=== PATIENT | female | born 1950 | race Two or more races ===

== ENCOUNTER 2020-09-09 12:30 | Inpatient (IN) | payer MEDICARE ==
[2020-09-09 14:22] LABS: VENOUS BASE EXCESS 3.8 mmol/L (-2-2); VENOUS PH 7.502 (7.310-7.410)
[2020-09-09 14:24] LABS: BASO % 0.6 % (0-2.0); EOS % 5.4 % (0-4.5); HEMATOCRIT 36.4 % (32.4-45.2); LYMPH % 29.3 % (8-40); MCH 31.9 pg (25.7-33.7); MCHC 32.9 g/dl (32.0-36.0); MEAN CELL VOLUME 97.1 fl (80-96); MEAN PLT VOLUME 11.8 fl (7.5-11.1); NEUT % 57.7 % (42.8-82.8); PLATELET COUNT 167 K/MM3 (134-434); RBC 3.75 M/mm3 (3.60-5.2); RDW 14.8 % (11.6-15.6); WHITE BLOOD COUNT 4.1 K/mm3 (4.0-10.0)
[2020-09-09 14:33] LABS: INR 1.25 (0.83-1.09); PROTHROMBIN TIME (PATIENT) 15.3 SEC (9.7-13.0)
[2020-09-09 14:36] LABS: ACTIVATED PTT 33.6 SECONDS (25.2-36.5)
[2020-09-09 14:42] LABS: CHLORIDE 104 mmol/L (98-107); SODIUM 141 mmol/L (136-145)
[2020-09-09 14:44] LABS: CALCIUM 9.7 mg/dL (8.5-10.1)
[2020-09-09 14:45] LABS: ALBUMIN 3.5 g/dl (3.4-5.0); ANION GAP 8 MMOL/L (8-16); BLOOD UREA NITROGEN 38.5 mg/dL (7-18); CO2 29 mmol/L (21-32); GLUCOSE,RANDOM 90 mg/dL (74-106)
[2020-09-09 14:48] LABS: CREATININE 1.3 mg/dL (0.55-1.3); SGOT/AST 25 U/L (15-37); SGPT/ALT 45 U/L (13-61)
[2020-09-09 14:49] LABS: BILIRUBIN,TOTAL 0.4 mg/dL (0.2-1); LDH 202 U/L (84-246); TOT PROT 8.9 g/dl (6.4-8.2)
[2020-09-09 14:50] LABS: ALK PHOS 147 U/L (45-117)
[2020-09-09] MEDS ORDERED: DEXAMETHASONE SOD PHOSPHATE 10 MG/1 ML VIAL IVPUSH ONE (15:09)
[2020-09-09] MEDS ORDERED: DEXAMETHASONE SOD PHOSPHATE 4 MG/1 ML VIAL ONE (15:34)
[2020-09-09] MEDS ORDERED: LABETALOL HCL 5 MG/1 ML (100MG/20 ML VIAL) IVPUSH ONE (18:52)
[2020-09-09] MEDS ORDERED: LABETALOL HCL 5 MG/1 ML (200MG/40ML VIAL) IVPB ONE (19:00)
[2020-09-09] MEDS ORDERED: amLODIPine BESYLATE 10 MG TABLET (FP) PO SCH (19:30)
[2020-09-09] MEDS ORDERED: amLODIPine BESYLATE 5 MG TABLET (FP) ONE (19:36)
[2020-09-09] MEDS ORDERED: ATORVASTATIN CA 40 MG TABLET (FP) ONE (20:57)
[2020-09-09] MEDS ORDERED: APIXABAN 5 MG TABLET ONE (20:57)
[2020-09-09] MEDS: ATORVASTATIN CA 40 MG TABLET (FP) PEG SCH (22:07)
[2020-09-09] MEDS: APIXABAN 5 MG TABLET PEG SCH (22:07)
[2020-09-10] MEDS ORDERED: FAMOTIDINE 20 MG TABLET PO SCH (10:00)
[2020-09-10] MEDS ORDERED: LOSARTAN POTASSIUM 25 MG TABLET PEG ONE (10:00)
[2020-09-10] MEDS ORDERED: PATIENT'S OWN MEDICATION (NON-FORMULARY) (Famotidine 40 MG Tablet) PEG SCH (10:00)
[2020-09-10] MEDS ORDERED: LOSARTAN POTASSIUM 25 MG TABLET GT ONE (10:00)
[2020-09-10] MEDS ORDERED: APIXABAN 5 MG TABLET ONE ×2 (10:24→22:33)
[2020-09-10] MEDS ORDERED: ASCORBIC ACID 500 MG TABLET (FP) ONE ×2 (10:24→22:47)
[2020-09-10] MEDS ORDERED: ZINC SULFATE 220 MG CAPSULE (FP) ONE ×2 (10:25→22:48)
[2020-09-10] MEDS ORDERED: CHOLECALCIFEROL (VIT D3) 1,000 UNIT (25 MCG) TABLET ONE (10:25)
[2020-09-10] MEDS ORDERED: levETIRAcetam 500 MG TABLET (FP) PO ONE (10:25)
[2020-09-10] MEDS ORDERED: FAMOTIDINE 20 MG TABLET ONE (10:25)
[2020-09-10] MEDS ORDERED: amLODIPine BESYLATE 5 MG TABLET (FP) ONE (10:25)
[2020-09-10] MEDS: amLODIPine BESYLATE 5 MG TABLET (FP) PEG SCH (10:33)
[2020-09-10] MEDS: levETIRAcetam 500 MG/5 ML ORAL SOLUTION (UNIT-DOSE CUPS) GT SCH (10:33)
[2020-09-10] MEDS: APIXABAN 5 MG TABLET PEG SCH ×2 (10:33→22:43)
[2020-09-10] MEDS: FERROUS SO4 300 MG/5 ML ORAL SOLN UNIT DOSE CUPS PEG SCH (10:33)
[2020-09-10] MEDS: CHOLECALCIFEROL (VIT D3) 1,000 UNIT (25 MCG) TABLET GT SCH (10:34)
[2020-09-10] MEDS: ZINC SULFATE 220 MG CAPSULE (FP) GT SCH ×2 (10:34→22:45)
[2020-09-10] MEDS: ASCORBIC ACID 500 MG TABLET (FP) PEG SCH ×2 (10:34→22:45)
[2020-09-10 11:04] LABS: BASO % 1.2 % (0-2.0); EOS % 0.3 % (0-4.5); HEMATOCRIT 35.3 % (32.4-45.2); HEMOGLOBIN 11.4 GM/dL (10.7-15.3); LYMPH % 35.1 % (8-40); MCH 31.7 pg (25.7-33.7); MCHC 32.4 g/dl (32.0-36.0); MEAN CELL VOLUME 97.7 fl (80-96); MEAN PLT VOLUME 11.5 fl (7.5-11.1); MONO % 11.5 % (3.8-10.2); NEUT % 51.9 % (42.8-82.8); PLATELET COUNT 160 K/MM3 (134-434); RBC 3.61 M/mm3 (3.60-5.2); RDW 15.4 % (11.6-15.6); WHITE BLOOD COUNT 4.8 K/mm3 (4.0-10.0)
[2020-09-10 11:27] LABS: ALBUMIN 3.5 g/dl (3.4-5.0)
[2020-09-10 11:39] LABS: BILIRUBIN,TOTAL 0.8 mg/dL (0.2-1); BLOOD UREA NITROGEN 34.9 mg/dL (7-18); CALCIUM 10.2 mg/dL (8.5-10.1); CREATININE 1.3 mg/dL (0.55-1.3); MAGNESIUM 2.5 mg/dL (1.8-2.4); TOT PROT 8.5 g/dl (6.4-8.2)
[2020-09-10] MEDS ORDERED: POTASSIUM CHLORIDE ORAL LIQUID 20 MEQ/15 ML GT ONE (12:25)
[2020-09-10 21:42] LABS: URINE COLOR YELLOW
[2020-09-10 21:43] LABS: URINE APPEARANCE CLOUDY; URINE BILIRUBIN NEGATIVE (NEGATIVE); URINE GLUCOSE (UA) NEGATIVE (NEGATIVE); URINE KETONE NEGATIVE (NEGATIVE); URINE NITRITE NEGATIVE (NEGATIVE); URINE RBC 134 /uL (0-23.9); URINE UROBILINOGEN 0.2 mg/dL (0.2-1.0); URINE WBC 560 /uL (0-25.8)
[2020-09-10 21:44] LABS: EPI CELLS 3 /uL (0-25.1); HYALINE CASTS 354 /uL (0-3.1); URINE BACTERIA 2376 /uL (0-1359)
[2020-09-10 21:46] LABS: URINE LEUK ESTERASE 1+ (NEGATIVE); URINE PROTEIN 4+ (NEGATIVE)
[2020-09-10] MEDS ORDERED: ATORVASTATIN CA 40 MG TABLET (FP) ONE (22:33)
[2020-09-10] MEDS: ATORVASTATIN CA 40 MG TABLET (FP) PEG SCH (22:43)
[2020-09-11] MEDS: levETIRAcetam 500 MG/5 ML ORAL SOLUTION (UNIT-DOSE CUPS) GT SCH (09:43)
[2020-09-11] MEDS: FERROUS SO4 300 MG/5 ML ORAL SOLN UNIT DOSE CUPS PEG SCH (09:43)
[2020-09-11] MEDS ORDERED: ASCORBIC ACID 500 MG TABLET (FP) ONE (09:45)
[2020-09-11] MEDS ORDERED: amLODIPine BESYLATE 5 MG TABLET (FP) ONE (09:45)
[2020-09-11] MEDS ORDERED: ZINC SULFATE 220 MG CAPSULE (FP) ONE ×2 (09:45→23:11)
[2020-09-11] MEDS ORDERED: APIXABAN 5 MG TABLET ONE ×2 (09:45→23:10)
[2020-09-11] MEDS ORDERED: FAMOTIDINE 20 MG TABLET ONE (09:45)
[2020-09-11] MEDS ORDERED: CEFTRIAXONE 1 GM/50 ML BAG ONE (09:46)
[2020-09-11] MEDS ORDERED: CHOLECALCIFEROL (VIT D3) 1,000 UNIT (25 MCG) TABLET ONE (09:46)
[2020-09-11] MEDS: amLODIPine BESYLATE 5 MG TABLET (FP) PEG SCH (09:47)
[2020-09-11] MEDS: APIXABAN 5 MG TABLET PEG SCH ×2 (09:47→23:24)
[2020-09-11] MEDS: ZINC SULFATE 220 MG CAPSULE (FP) GT SCH ×2 (09:47→23:24)
[2020-09-11] MEDS: ASCORBIC ACID 500 MG TABLET (FP) PEG SCH (09:48)
[2020-09-11] MEDS: CHOLECALCIFEROL (VIT D3) 1,000 UNIT (25 MCG) TABLET GT SCH (09:48)
[2020-09-11] MEDS: ASCORBIC ACID 500 MG/5 ML UNIT DOSE CUP PEG SCH ×2 (09:56→23:25)
[2020-09-11] MEDS: FAMOTIDINE 40 MG/5 ML ORAL SUSPENSION PEG SCH (09:56)
[2020-09-11] MEDS ORDERED: CEFTRIAXONE 1 GM in DEXTROSE 5%-WATER - 50 ML IVPB SCH (10:00)
[2020-09-11 12:57] LABS: BASO % 1.2 % (0-2.0); EOS % 1.8 % (0-4.5); HEMATOCRIT 38.8 % (32.4-45.2); HEMOGLOBIN 12.6 GM/dL (10.7-15.3); LYMPH % 25.7 % (8-40); MCH 31.7 pg (25.7-33.7); MCHC 32.5 g/dl (32.0-36.0); MEAN CELL VOLUME 97.5 fl (80-96); MEAN PLT VOLUME 11.3 fl (7.5-11.1); MONO % 11.1 % (3.8-10.2); NEUT % 60.2 % (42.8-82.8); PLATELET COUNT 162 K/MM3 (134-434); RBC 3.98 M/mm3 (3.60-5.2); WHITE BLOOD COUNT 5.7 K/mm3 (4.0-10.0)
[2020-09-11 13:29] LABS: CALCIUM 9.8 mg/dL (8.5-10.1)
[2020-09-11 13:30] LABS: ALBUMIN 3.2 g/dl (3.4-5.0); BLOOD UREA NITROGEN 44.5 mg/dL (7-18); MAGNESIUM 2.5 mg/dL (1.8-2.4)
[2020-09-11 13:33] LABS: CREATININE 1.4 mg/dL (0.55-1.3)
[2020-09-11 13:34] LABS: BILIRUBIN,TOTAL 1.7 mg/dL (0.2-1); TOT PROT 8.1 g/dl (6.4-8.2)
[2020-09-11] MEDS ORDERED: PIPERACILLIN/TAZOB 3.375 GM 3.375 GM/50 ML BAG IVPB ONE (18:20)
[2020-09-11] MEDS: PIPERACILLIN/TAZOB 3.375 GM 3.375 GM in DEXTROSE 5%-WATER - 50 ML IVPB SCH (18:27)
[2020-09-11] MEDS ORDERED: ATORVASTATIN CA 40 MG TABLET (FP) ONE (23:11)
[2020-09-11] MEDS: ATORVASTATIN CA 40 MG TABLET (FP) PEG SCH (23:24)
[2020-09-12] MEDS ORDERED: DEXTROSE 5%-WATER - 50 ML IVPB ONE ×3 (02:46→17:06)
[2020-09-12] MEDS ORDERED: PIPERACILLIN/TAZOBACTAM 3.375 GM VIAL IVPB ONE ×3 (02:46→17:06)
[2020-09-12] MEDS: PIPERACILLIN/TAZOB 3.375 GM 3.375 GM in DEXTROSE 5%-WATER - 50 ML IVPB SCH ×3 (02:51→17:10)
[2020-09-12] MEDS ORDERED: ACETAMINOPHEN 1000 MG/100 ML BAG IVPB ONE (05:24)
[2020-09-12 08:58] LABS: BASO % 1.2 % (0-2.0); EOS % 6.1 % (0-4.5); HEMOGLOBIN 12.8 GM/dL (10.7-15.3); LYMPH % 24.7 % (8-40); MCH 32.1 pg (25.7-33.7); MEAN CELL VOLUME 97.5 fl (80-96); MEAN PLT VOLUME 11.8 fl (7.5-11.1); MONO % 8.1 % (3.8-10.2); NEUT % 59.9 % (42.8-82.8); PLATELET COUNT 179 K/MM3 (134-434); RDW 15.1 % (11.6-15.6); WHITE BLOOD COUNT 4.6 K/mm3 (4.0-10.0)
[2020-09-12 09:23] LABS: ALBUMIN 3.3 g/dl (3.4-5.0); BLOOD UREA NITROGEN 49.1 mg/dL (7-18); MAGNESIUM 2.5 mg/dL (1.8-2.4)
[2020-09-12 09:24] LABS: BILIRUBIN,TOTAL 1.6 mg/dL (0.2-1)
[2020-09-12 09:25] LABS: TOT PROT 8.2 g/dl (6.4-8.2)
[2020-09-12 09:26] LABS: CREATININE 1.7 mg/dL (0.55-1.3)
[2020-09-12] MEDS ORDERED: PT OWN MED DRAWER 7, Y5N ONE ×2 (10:35→22:15)
[2020-09-12] MEDS: ASCORBIC ACID 500 MG/5 ML UNIT DOSE CUP PEG SCH ×2 (11:30→22:40)
[2020-09-12] MEDS: FERROUS SO4 300 MG/5 ML ORAL SOLN UNIT DOSE CUPS PEG SCH (11:30)
[2020-09-12] MEDS: levETIRAcetam 500 MG/5 ML ORAL SOLUTION (UNIT-DOSE CUPS) GT SCH (11:30)
[2020-09-12] MEDS: APIXABAN 5 MG TABLET PEG SCH ×2 (11:31→22:40)
[2020-09-12] MEDS: CHOLECALCIFEROL (VIT D3) 1,000 UNIT (25 MCG) TABLET GT SCH (11:31)
[2020-09-12] MEDS: amLODIPine BESYLATE 5 MG TABLET (FP) PEG SCH (11:31)
[2020-09-12] MEDS: ZINC SULFATE 220 MG CAPSULE (FP) GT SCH ×2 (11:31→22:40)
[2020-09-12] MEDS: FAMOTIDINE 40 MG/5 ML ORAL SUSPENSION PEG SCH (11:31)
[2020-09-12] MEDS ORDERED: METOCLOPRAMIDE HCL 10 MG/10 ML UNIT DOSE CUP PO ONE (13:07)
[2020-09-12] MEDS: ATORVASTATIN CA 40 MG TABLET (FP) PEG SCH (22:40)
[2020-09-13] MEDS ORDERED: DEXTROSE 5%-WATER - 50 ML IVPB ONE ×3 (01:09→17:59)
[2020-09-13] MEDS ORDERED: PIPERACILLIN/TAZOBACTAM 3.375 GM VIAL IVPB ONE ×3 (01:09→17:58)
[2020-09-13] MEDS: PIPERACILLIN/TAZOB 3.375 GM 3.375 GM in DEXTROSE 5%-WATER - 50 ML IVPB SCH ×3 (01:10→18:00)
[2020-09-13 09:17] LABS: BASO % 0.6 % (0-2.0); EOS % 12.4 % (0-4.5); HEMATOCRIT 36.7 % (32.4-45.2); HEMOGLOBIN 11.9 GM/dL (10.7-15.3); LYMPH % 19.5 % (8-40); MCH 32.2 pg (25.7-33.7); MCHC 32.5 g/dl (32.0-36.0); MEAN PLT VOLUME 11.3 fl (7.5-11.1); MONO % 10.9 % (3.8-10.2); NEUT % 56.6 % (42.8-82.8); PLATELET COUNT 150 K/MM3 (134-434); RBC 3.71 M/mm3 (3.60-5.2); RDW 15.4 % (11.6-15.6); WHITE BLOOD COUNT 4.8 K/mm3 (4.0-10.0)
[2020-09-13 09:31] LABS: ALBUMIN 2.9 g/dl (3.4-5.0); BLOOD UREA NITROGEN 60.1 mg/dL (7-18); CALCIUM 9.4 mg/dL (8.5-10.1)
[2020-09-13 09:32] LABS: MAGNESIUM 2.6 mg/dL (1.8-2.4)
[2020-09-13 09:36] LABS: BILIRUBIN,TOTAL 1.2 mg/dL (0.2-1); TOT PROT 7.7 g/dl (6.4-8.2)
[2020-09-13] MEDS: levETIRAcetam 500 MG/5 ML ORAL SOLUTION (UNIT-DOSE CUPS) GT SCH (11:31)
[2020-09-13] MEDS: CHOLECALCIFEROL (VIT D3) 1,000 UNIT (25 MCG) TABLET GT SCH (11:32)
[2020-09-13] MEDS: ZINC SULFATE 220 MG CAPSULE (FP) GT SCH (11:32)
[2020-09-13] MEDS: APIXABAN 5 MG TABLET PEG SCH ×2 (11:32→22:55)
[2020-09-13] MEDS: FERROUS SO4 300 MG/5 ML ORAL SOLN UNIT DOSE CUPS PEG SCH (11:32)
[2020-09-13] MEDS: amLODIPine BESYLATE 5 MG TABLET (FP) PEG SCH (11:32)
[2020-09-13] MEDS: FAMOTIDINE 40 MG/5 ML ORAL SUSPENSION PEG SCH (11:33)
[2020-09-13] MEDS: ASCORBIC ACID 500 MG/5 ML UNIT DOSE CUP PEG SCH ×2 (11:33→22:55)
[2020-09-13] MEDS: POTASSIUM CHLORIDE 10 MEQ in SODIUM CHLORIDE 0.45% 1,000 ML IVPB SCH (17:03)
[2020-09-13] MEDS ORDERED: PT OWN MED DRAWER 7, Y5N ONE (22:35)
[2020-09-13] MEDS: ATORVASTATIN CA 40 MG TABLET (FP) PEG SCH (22:55)
[2020-09-14] MEDS ORDERED: PIPERACILLIN/TAZOBACTAM 3.375 GM VIAL IVPB ONE ×3 (02:08→16:42)
[2020-09-14] MEDS ORDERED: DEXTROSE 5%-WATER - 50 ML IVPB ONE ×3 (02:08→16:42)
[2020-09-14] MEDS: PIPERACILLIN/TAZOB 3.375 GM 3.375 GM in DEXTROSE 5%-WATER - 50 ML IVPB SCH ×3 (02:10→17:10)
[2020-09-14] MEDS: CHOLECALCIFEROL (VIT D3) 1,000 UNIT (25 MCG) TABLET GT SCH (09:46)
[2020-09-14] MEDS: APIXABAN 5 MG TABLET PEG SCH ×2 (09:46→22:26)
[2020-09-14] MEDS: amLODIPine BESYLATE 5 MG TABLET (FP) PEG SCH (09:46)
[2020-09-14] MEDS: levETIRAcetam 500 MG/5 ML ORAL SOLUTION (UNIT-DOSE CUPS) GT SCH (10:01)
[2020-09-14] MEDS: ASCORBIC ACID 500 MG/5 ML UNIT DOSE CUP PEG SCH ×2 (10:01→22:42)
[2020-09-14] MEDS: FAMOTIDINE 40 MG/5 ML ORAL SUSPENSION PEG SCH (10:01)
[2020-09-14] MEDS: FERROUS SO4 300 MG/5 ML ORAL SOLN UNIT DOSE CUPS PEG SCH (10:01)
[2020-09-14 12:06] LABS: BASO % 0.5 % (0-2.0); EOS % 14.2 % (0-4.5); HEMOGLOBIN 11.3 GM/dL (10.7-15.3); LYMPH % 21.5 % (8-40); MCH 31.5 pg (25.7-33.7); MCHC 32.4 g/dl (32.0-36.0); MEAN CELL VOLUME 97.1 fl (80-96); MEAN PLT VOLUME 11.1 fl (7.5-11.1); NEUT % 55.8 % (42.8-82.8); PLATELET COUNT 150 K/MM3 (134-434); RDW 15.3 % (11.6-15.6); WHITE BLOOD COUNT 4.4 K/mm3 (4.0-10.0)
[2020-09-14] MEDS ORDERED: POTASSIUM CHLORIDE TABS 20 MEQ TABLET.ER (FP) PO ONE (12:15)
[2020-09-14 12:25] LABS: CALCIUM 9.4 mg/dL (8.5-10.1)
[2020-09-14 12:26] LABS: BLOOD UREA NITROGEN 48.2 mg/dL (7-18); MAGNESIUM 2.7 mg/dL (1.8-2.4)
[2020-09-14 12:29] LABS: CREATININE 1.7 mg/dL (0.55-1.3)
[2020-09-14 12:31] LABS: BILIRUBIN,TOTAL 0.6 mg/dL (0.2-1); TOT PROT 7.5 g/dl (6.4-8.2)
[2020-09-14] MEDS: POTASSIUM CHLORIDE 10 MEQ in SODIUM CHLORIDE 0.45% 1,000 ML IVPB SCH ×2 (13:54→15:14)
[2020-09-14] MEDS ORDERED: SODIUM CHLORIDE 0.45%/POT 20 MEQ/1,000 ML INFUS.BAG IV SCH (15:15)
[2020-09-14] MEDS: SODIUM CHLORIDE 0.45%/POT 20 MEQ/1,000 ML INFUS.BAG IV SCH (15:26)
[2020-09-14] MEDS: LORazepam 2 MG/ML SDV VIAL IVPUSH PRN (17:13)
[2020-09-14] MEDS: ATORVASTATIN CA 40 MG TABLET (FP) PEG SCH (22:26)
[2020-09-14] MEDS: POTASSIUM CHLORIDE ORAL LIQUID 20 MEQ/15 ML PO SCH (22:26)
[2020-09-14] MEDS ORDERED: PT OWN MED DRAWER 7, Y5N ONE (22:31)
[2020-09-15] MEDS ORDERED: PIPERACILLIN/TAZOBACTAM 3.375 GM VIAL IVPB ONE ×3 (02:17→16:37)
[2020-09-15] MEDS ORDERED: DEXTROSE 5%-WATER - 50 ML IVPB ONE ×3 (02:17→16:37)
[2020-09-15] MEDS: PIPERACILLIN/TAZOB 3.375 GM 3.375 GM in DEXTROSE 5%-WATER - 50 ML IVPB SCH ×3 (02:19→17:13)
[2020-09-15] MEDS: LORazepam 2 MG/ML SDV VIAL IVPUSH PRN ×3 (02:19→20:12)
[2020-09-15 09:33] LABS: EPI CELLS 13 /uL (0-25.1); HYALINE CASTS 3 /uL (0-3.1); URINE APPEARANCE CLOUDY; URINE BACTERIA 59 /uL (0-1359); URINE BILIRUBIN NEGATIVE (NEGATIVE); URINE COLOR YELLOW; URINE GLUCOSE (UA) NEGATIVE (NEGATIVE); URINE KETONE NEGATIVE (NEGATIVE); URINE LEUK ESTERASE 3+ (NEGATIVE); URINE NITRITE NEGATIVE (NEGATIVE); URINE PROTEIN 2+ (NEGATIVE); URINE RBC 34 /uL (0-23.9); URINE UROBILINOGEN 0.2 mg/dL (0.2-1.0); URINE WBC 1382 /uL (0-25.8)
[2020-09-15] MEDS: FAMOTIDINE 40 MG/5 ML ORAL SUSPENSION PEG SCH (09:45)
[2020-09-15] MEDS: FERROUS SO4 300 MG/5 ML ORAL SOLN UNIT DOSE CUPS PEG SCH (09:45)
[2020-09-15] MEDS: ASCORBIC ACID 500 MG/5 ML UNIT DOSE CUP PEG SCH ×2 (09:45→22:01)
[2020-09-15] MEDS: POTASSIUM CHLORIDE ORAL LIQUID 20 MEQ/15 ML PO SCH (09:45)
[2020-09-15] MEDS: APIXABAN 5 MG TABLET PEG SCH ×2 (09:45→22:01)
[2020-09-15] MEDS: CHOLECALCIFEROL (VIT D3) 1,000 UNIT (25 MCG) TABLET GT SCH (09:45)
[2020-09-15] MEDS: amLODIPine BESYLATE 5 MG TABLET (FP) PEG SCH (09:45)
[2020-09-15] MEDS: levETIRAcetam 500 MG/5 ML ORAL SOLUTION (UNIT-DOSE CUPS) GT SCH (09:45)
[2020-09-15] MEDS: SODIUM CHLORIDE 0.45%/POT 20 MEQ/1,000 ML INFUS.BAG IV SCH ×2 (11:48→14:36)
[2020-09-15 15:00] LABS: YEAST NONE SEEN (NEGATIVE)
[2020-09-15] MEDS ORDERED: PT OWN MED DRAWER 7, Y5N ONE (21:53)
[2020-09-15] MEDS: ATORVASTATIN CA 40 MG TABLET (FP) PEG SCH (22:01)
[2020-09-16] MEDS ORDERED: PIPERACILLIN/TAZOBACTAM 3.375 GM VIAL IVPB ONE ×3 (01:39→18:25)
[2020-09-16] MEDS ORDERED: DEXTROSE 5%-WATER - 50 ML IVPB ONE ×3 (01:39→18:25)
[2020-09-16] MEDS: PIPERACILLIN/TAZOB 3.375 GM 3.375 GM in DEXTROSE 5%-WATER - 50 ML IVPB SCH ×3 (02:28→18:27)
[2020-09-16] MEDS: SODIUM CHLORIDE 0.45%/POT 20 MEQ/1,000 ML INFUS.BAG IV SCH (06:02)
[2020-09-16 08:30] LABS: CHLORIDE 111 mmol/L (98-107); SODIUM 144 mmol/L (136-145)
[2020-09-16 08:40] LABS: CALCIUM 8.9 mg/dL (8.5-10.1)
[2020-09-16 08:41] LABS: ALBUMIN 2.6 g/dl (3.4-5.0); ANION GAP 6 MMOL/L (8-16); BLOOD UREA NITROGEN 33.9 mg/dL (7-18); CO2 27 mmol/L (21-32); GLUCOSE,RANDOM 126 mg/dL (74-106); MAGNESIUM 2.2 mg/dL (1.8-2.4)
[2020-09-16 08:42] LABS: SGPT/ALT 24 U/L (13-61)
[2020-09-16 08:43] LABS: BILIRUBIN,TOTAL 1.1 mg/dL (0.2-1)
[2020-09-16 08:44] LABS: CREATININE 1.2 mg/dL (0.55-1.3); SGOT/AST 18 U/L (15-37)
[2020-09-16 08:45] LABS: ALK PHOS 102 U/L (45-117)
[2020-09-16 08:54] LABS: BASO % 0.9 % (0-2.0); EOS % 13.5 % (0-4.5); HEMATOCRIT 31.4 % (32.4-45.2); HEMOGLOBIN 10.2 GM/dL (10.7-15.3); LYMPH % 28.1 % (8-40); MCH 32.3 pg (25.7-33.7); MCHC 32.6 g/dl (32.0-36.0); MEAN CELL VOLUME 99.1 fl (80-96); MEAN PLT VOLUME 11.7 fl (7.5-11.1); MONO % 8.1 % (3.8-10.2); NEUT % 49.4 % (42.8-82.8); PLATELET COUNT 116 K/MM3 (134-434); RBC 3.17 M/mm3 (3.60-5.2); WHITE BLOOD COUNT 3.7 K/mm3 (4.0-10.0)
[2020-09-16] MEDS ORDERED: PT OWN MED DRAWER 7, Y5N ONE ×2 (09:14→21:53)
[2020-09-16] MEDS: levETIRAcetam 500 MG/5 ML ORAL SOLUTION (UNIT-DOSE CUPS) GT SCH (09:19)
[2020-09-16] MEDS: LORazepam 2 MG/ML SDV VIAL IVPUSH PRN ×2 (09:19→19:48)
[2020-09-16] MEDS: FERROUS SO4 300 MG/5 ML ORAL SOLN UNIT DOSE CUPS PEG SCH (09:19)
[2020-09-16] MEDS: ASCORBIC ACID 500 MG/5 ML UNIT DOSE CUP PEG SCH ×2 (09:19→21:56)
[2020-09-16] MEDS: amLODIPine BESYLATE 5 MG TABLET (FP) PEG SCH (09:20)
[2020-09-16] MEDS: CHOLECALCIFEROL (VIT D3) 1,000 UNIT (25 MCG) TABLET GT SCH (09:20)
[2020-09-16] MEDS: FAMOTIDINE 40 MG/5 ML ORAL SUSPENSION PEG SCH (09:20)
[2020-09-16] MEDS: APIXABAN 5 MG TABLET PEG SCH ×2 (09:20→21:56)
[2020-09-16] MEDS ORDERED: DOCUSATE NA 100 MG/10 ML UNIT-DOSE CUPS PO PRN (09:23)
[2020-09-16 12:52] VITALS: BMI 19.5
[2020-09-16] MEDS ORDERED: DEXTROSE 5%-WATER - 1,000 ML with POTASSIUM CHLORIDE 20 MEQ IV SCH (15:00)
[2020-09-16] MEDS: ATORVASTATIN CA 40 MG TABLET (FP) PEG SCH (21:56)
[2020-09-17] MEDS ORDERED: PIPERACILLIN/TAZOBACTAM 3.375 GM VIAL IVPB ONE ×2 (01:35→11:40)
[2020-09-17] MEDS ORDERED: DEXTROSE 5%-WATER - 50 ML IVPB ONE ×2 (01:35→11:41)
[2020-09-17] MEDS: PIPERACILLIN/TAZOB 3.375 GM 3.375 GM in DEXTROSE 5%-WATER - 50 ML IVPB SCH ×2 (02:01→11:46)
[2020-09-17] MEDS ORDERED: PT OWN MED DRAWER 7, Y5N ONE (11:40)
[2020-09-17] MEDS: CHOLECALCIFEROL (VIT D3) 1,000 UNIT (25 MCG) TABLET GT SCH (11:46)
[2020-09-17] MEDS: FERROUS SO4 300 MG/5 ML ORAL SOLN UNIT DOSE CUPS PEG SCH (11:46)
[2020-09-17] MEDS: levETIRAcetam 500 MG/5 ML ORAL SOLUTION (UNIT-DOSE CUPS) GT SCH (11:46)
[2020-09-17] MEDS: amLODIPine BESYLATE 5 MG TABLET (FP) PEG SCH (11:46)
[2020-09-17] MEDS: ASCORBIC ACID 500 MG/5 ML UNIT DOSE CUP PEG SCH ×2 (11:47→22:28)
[2020-09-17] MEDS: APIXABAN 5 MG TABLET PEG SCH ×2 (11:47→22:28)
[2020-09-17] MEDS: FAMOTIDINE 40 MG/5 ML ORAL SUSPENSION PEG SCH (11:47)
[2020-09-17] MEDS: LORazepam 2 MG/ML SDV VIAL IVPUSH PRN ×2 (11:48→23:15)
[2020-09-17] MEDS: ATORVASTATIN CA 40 MG TABLET (FP) PEG SCH (22:28)
[2020-09-18] MEDS: ATORVASTATIN CA 40 MG TABLET (FP) PEG SCH ×2 (02:14→21:23)
[2020-09-18] MEDS: ASCORBIC ACID 500 MG/5 ML UNIT DOSE CUP PEG SCH ×3 (02:15→21:23)
[2020-09-18] MEDS: APIXABAN 5 MG TABLET PEG SCH ×3 (02:15→21:23)
[2020-09-18 10:31] LABS: EOS % 5.6 % (0-4.5); HEMATOCRIT 31.2 % (32.4-45.2); HEMOGLOBIN 10.4 GM/dL (10.7-15.3); MCHC 33.3 g/dl (32.0-36.0); MEAN PLT VOLUME 11.6 fl (7.5-11.1); MONO % 7.5 % (3.8-10.2); NEUT % 61.9 % (42.8-82.8); PLATELET COUNT 120 K/MM3 (134-434); RBC 3.25 M/mm3 (3.60-5.2); RDW 14.6 % (11.6-15.6); WHITE BLOOD COUNT 6.3 K/mm3 (4.0-10.0)
[2020-09-18 10:50] LABS: CALCIUM 9.4 mg/dL (8.5-10.1)
[2020-09-18 10:51] LABS: ALBUMIN 2.8 g/dl (3.4-5.0); BLOOD UREA NITROGEN 19.3 mg/dL (7-18)
[2020-09-18 10:55] LABS: BILIRUBIN,TOTAL 0.6 mg/dL (0.2-1); CREATININE 1.1 mg/dL (0.55-1.3); TOT PROT 7.3 g/dl (6.4-8.2)
[2020-09-18] MEDS: levETIRAcetam 500 MG/5 ML ORAL SOLUTION (UNIT-DOSE CUPS) GT SCH (11:25)
[2020-09-18] MEDS: amLODIPine BESYLATE 5 MG TABLET (FP) PEG SCH (11:25)
[2020-09-18] MEDS: CHOLECALCIFEROL (VIT D3) 1,000 UNIT (25 MCG) TABLET GT SCH (11:25)
[2020-09-18] MEDS: FERROUS SO4 300 MG/5 ML ORAL SOLN UNIT DOSE CUPS PEG SCH (11:25)
[2020-09-18] MEDS: LORazepam 2 MG/ML SDV VIAL IVPUSH PRN (11:27)
[2020-09-18] MEDS: FAMOTIDINE 40 MG/5 ML ORAL SUSPENSION PEG SCH (11:29)
[2020-09-18] MEDS ORDERED: SCOPOLAMINE HYDROBROMIDE 1 PATCH PATCH.TD72 TD SCH (14:00)
[2020-09-18] MEDS ORDERED: PT OWN MED DRAWER 7, Y5N ONE (20:43)
[2020-09-19] MEDS: LORazepam 2 MG/ML SDV VIAL IVPUSH PRN (06:10)
[2020-09-19] MEDS ORDERED: PNEUMOC 13-VAL CONJ-DIP CRM/PF 0.5 ML DISP.SYRIN IM ONE (10:49)
[2020-09-19] MEDS: levETIRAcetam 500 MG/5 ML ORAL SOLUTION (UNIT-DOSE CUPS) GT SCH (11:31)
[2020-09-19] MEDS: CHOLECALCIFEROL (VIT D3) 1,000 UNIT (25 MCG) TABLET GT SCH (11:31)
[2020-09-19] MEDS: FERROUS SO4 300 MG/5 ML ORAL SOLN UNIT DOSE CUPS PEG SCH (11:31)
[2020-09-19] MEDS: ASCORBIC ACID 500 MG/5 ML UNIT DOSE CUP PEG SCH (11:32)
[2020-09-19] MEDS: FAMOTIDINE 40 MG/5 ML ORAL SUSPENSION PEG SCH (11:32)
[2020-09-19] MEDS: amLODIPine BESYLATE 5 MG TABLET (FP) PEG SCH (11:32)
[2020-09-19] MEDS: APIXABAN 5 MG TABLET PEG SCH ×2 (11:33→21:08)
[2020-09-19 11:53] LABS: BASO % 0.8 % (0-2.0); EOS % 5.5 % (0-4.5); HEMATOCRIT 30.6 % (32.4-45.2); HEMOGLOBIN 10.2 GM/dL (10.7-15.3); LYMPH % 25.6 % (8-40); MCH 32.5 pg (25.7-33.7); MCHC 33.3 g/dl (32.0-36.0); MEAN CELL VOLUME 97.6 fl (80-96); MEAN PLT VOLUME 11.5 fl (7.5-11.1); MONO % 9.3 % (3.8-10.2); NEUT % 58.8 % (42.8-82.8); PLATELET COUNT 112 K/MM3 (134-434); RBC 3.13 M/mm3 (3.60-5.2); RDW 14.8 % (11.6-15.6); WHITE BLOOD COUNT 5.1 K/mm3 (4.0-10.0)
[2020-09-19 12:19] LABS: ALBUMIN 2.8 g/dl (3.4-5.0); BLOOD UREA NITROGEN 19.4 mg/dL (7-18); CALCIUM 9.5 mg/dL (8.5-10.1)
[2020-09-19 12:22] LABS: CREATININE 1.1 mg/dL (0.55-1.3)
[2020-09-19 12:24] LABS: BILIRUBIN,TOTAL 0.4 mg/dL (0.2-1); TOT PROT 7.2 g/dl (6.4-8.2)
[2020-09-19] MEDS ORDERED: LORazepam 1 MG TABLET GT PRN (14:56)
[2020-09-19] MEDS: ATORVASTATIN CA 40 MG TABLET (FP) PEG SCH (21:08)
[2020-09-19 21:13] VITALS: BP 141/86; PULSE 79; TEMP 98.4
== END 2020-09-19 21:44 | DRG 207 ==
LOC: JER 12:30 → INTOOBSV 15:09 → JERBED 15:09 → OBSVTOIN 15:09 → J5S 09-12 02:43
PROVIDERS: ADMIT Internal Medicine; ATTEND Nurse Practitioner Acute Care
PROC: 5A1955Z Respiratory Ventilation, Greater than 96 Consecutive Hours (ICD-10-PCS; principal; 2020-09-09)
PROC: 3E0H76Z Introduction of Nutritional Substance into Lower GI, Via Natural or Artificial Opening (ICD-10-PCS; 2020-09-12)
DX: J18.9 Pneumonia, unspecified organism (principal); R53.2 Functional quadriplegia; J98.11 Atelectasis; N39.0 Urinary tract infection, site not specified; N17.9 Acute kidney failure, unspecified; J96.11 Chronic respiratory failure with hypoxia; I25.10 Atherosclerotic heart disease of native coronary artery without angina pectoris; B96.20 Unspecified Escherichia coli [E. coli] as the cause of diseases classified elsewhere; J44.9 Chronic obstructive pulmonary disease, unspecified; E78.5 Hyperlipidemia, unspecified; I48.0 Paroxysmal atrial fibrillation; I50.9 Heart failure, unspecified; G40.909 Epilepsy, unspecified, not intractable, without status epilepticus; E87.6 Hypokalemia; K21.9 Gastro-esophageal reflux disease without esophagitis; Z93.0 Tracheostomy status; Z93.1 Gastrostomy status; Z74.01 Bed confinement status
CPT/HCPCS: 36415; 71045-TC-FY; 71250-TC; 80048; 80053; 81003; 82436; 82550; 82565; 82728; 82803; 83605; 83615; 83735; 84133; 84300; 84484; 85025; 85379; 85610; 85730; 86140; 87040; 87086; 87186; 87205; 90670; 93005; 93010; 94002; 99285-25; C9803; J0131; J1100; J3480; U0003

== ENCOUNTER 2020-10-16 15:06 | Emergency (ER) | payer OTHER, MEDICARE ==
[2020-10-16 15:26] VITALS: BMI 25.8
[2020-10-16] MEDS ORDERED: ALBUTEROL SO4 2.5/IPRATROPIUM 0.5 INH SOL 3 ML VIAL.NEB. NEB ONE ×2 (15:56→16:46)
[2020-10-16 17:03] VITALS: TEMP 98
[2020-10-16 17:44] VITALS: BP 160/90; PULSE 90
== END 2020-10-16 17:44 | disposition short-term general hospital (02) ==
LOC: JER 15:06
DX: J95.00 Unspecified tracheostomy complication (principal); R53.2 Functional quadriplegia; J44.9 Chronic obstructive pulmonary disease, unspecified; J96.10 Chronic respiratory failure, unspecified whether with hypoxia or hypercapnia
CPT/HCPCS: 99291